=== PATIENT | male | born 1960 | race Caucasian/White ===

== ENCOUNTER 2021-04-10 05:57 | Day surgery (SDC) | payer OTHER, SELFPAY ==
--- NOTE | 2021-04-08 09:58 | EKG12_ITS ---
Test Reason : PRE OP Blood Pressure : / mmHG Vent. Rate : 057 BPM Atrial Rate : 057 BPM P-R Int : 168 ms QRS Dur : 080 ms QT Int : 400 ms P-R-T Axes : 009 000 016 degrees QTc Int : 389 ms Sinus bradycardia Otherwise normal ECG Confirmed by RIZWANA JOYNER, JOSH ([id number]), assistant production editor EUNICE GUERIN ([id number]) on 04/15/2021 12:33:18 PM Referred By: Robert Brasher Confirmed By:SOWMYA WAGONER MD
[2021-04-08 10:57] LABS: Hemoglobin A1c 6.7 % (3.8-5.6)
[2021-04-08 11:04] LABS: Anion Gap 6 (5-15); BUN 20 mg/dL (7-18); BUN/Creat Ratio 18.5 RATIO (10-20); Chloride 106 mmol/L (98-107); Creatinine, Serum 1.08 mg/dL (0.70-1.30); EST Glomerular Filtration Rate 74 mL/min (>60); Est Glom Filt Rate - Afr Amer 90 mL/min (>60); Glucose 131 mg/dL (74-106); Potassium 4.2 mmol/L (3.5-5.1); Sodium Level 138 mmol/L (136-145)
[2021-04-10 06:48] VITALS: BP 111/74; PULSE 56; RESP 16; TEMP 36.3; O2SAT 97; BMI 30.6
--- NOTE | 2021-04-10 06:52 | PCM.HP.BLA ---
History and Physical Date of Admission: 04/10/21 Intake Vital Signs 04/01/21 14:26 Height 6 ft Weight: 234 lb BMI 31.7 BP 128/76 H Blood Pressure Location Rt brachial Position Sitting Respiration 18 Pulse 78 Pulse Source Monitor Temp 97.6 F L Temp Source Temporal Pulse Oximetry (%) 97 Oxygen Delivery Method room air Intake Visit Reasons: Hernia Chief Complaint: umbilical hernia General Administrator Required: No Is patient in pain?: No Allergies gabapentin Allergy (Intermediate, Verified 04/01/21 14:28) leg swelling naproxen Allergy (Intermediate, Verified 04/01/21 14:28) headache Medications lisinopril 20 mg tablet 20 mg PO DAILY 04/01/21 [History Confirmed 04/01/21] pioglitazone 30 mg tablet 30 mg PO DAILY 04/01/21 [History Confirmed 04/01/21] rivaroxaban 20 mg tablet 20 mg PO DAILY 04/01/21 [History Confirmed 04/01/21] sildenafil 25 mg tablet 25 mg PO DAILY PRN 04/01/21 [History Confirmed 04/01/21] tamsulosin 0.4 mg capsule 0.4 mg PO DAILY 04/01/21 [History Confirmed 04/01/21] PFSH Medical History (Updated 04/01/21 @ 14:[address] Robert Brasher MD) Asthma Blood clotting disorder Diabetes Hemorrhoids History of back problems Hx of half-way use of blood thinners Hypertension Umbilical hernia Surgical History (Updated 04/01/21 @ 14:25 by Melonie Loomis) History of blepharoplasty History of carpal tunnel release History of lumbar sympathectomy History of tonsillectomy Family History (Updated 04/01/21 @ 14:25 by Melonie Loomis) Mother Diabetes Father Diabetes Heart disease Social History (Updated 04/01/21 @ 14:26 by Melonie Loomis) alcohol intake: never substance use type: does not use HPI HPI HPI: SARAH DANIEL, is a 60 M who presents to the office today for umbilical hernia. Patient reports he has been noting bulging and pain in the area. Patient does not have any nausea or vomiting. No fevers or chills. No radiation of pain. ROS General General: No weight change, appetite, fatigue, colon cancer, breast cancer or weakness HEENT HEENT: No difficulty swallowing, eye injury, eye surgery, swollen glands or hoarseness Endo Endocrine: Yes diabetes mellitus; No thyroid disease, thyroid cancer, Hair loss, heat intolerance or cold intolerance Skin Skin: No rash or changing moles Breast Breast: No left breast lump, right breast lump, nipple discharge, breast pain, abnormal mammogram, abnormal US or breast enlargement Musc Musculoskeletal: Yes back problems; No arthritis, rheumatoid arthritis, gout or joint pain Cardio Cardiovascular: Yes murmur and high blood pressure; No pacemaker, heart disease, atrial fibrillation, heart attack, heart stent, palpitations, shortness of breat with exertion or chest pain Psych Psychiatric: No depression, anxiety or hearing voices Resp Respiratory: No shortness of breath, No sleep apnea, No cough, No COPD, Yes asthma, No emphysema and No wheezing Gastro Gastrointestinal: No abdominal pain, No nausea or vomiting, No diarrhea, No constipation, No blood in stool, No acid reflux, Yes hemorrhoids, No ulcers, No gallbladder problem and No black,tarry stools Shakeel Hematologic: Yes blood thinners, Yes blood disorders, No bleeding, No anemia and Yes blood clots Neuro Neurologic: No system reviewed and no additional complaints, except as documented, No as per HPI, No abnormal gait, No abnormal hearing, No abnormal movements, No abnormal speech, No behavioral changes, No burning sensations, No confusion, No convulsions, No disequilibrium, No dizziness, No localized weakness, No frequent falls, No headache(s), No lack of coordination, No loss of vision, No memory loss, Yes numbness, No other visual disturbances, No radicular pain, No restless legs, No sensory deficit, No syncope, Yes tingling, No tremor(s), No weakness and No other Exam Const General: cooperative Orientation: alert and oriented x3 HENMT Head: normal to inspection Neck Neck: normal visual inspection and full ROM Chest Chest palpation & inspection: normal inspection of the chest Resp Effort & Inspection: normal respiratory effort Auscultation: clear to auscultation bilaterally Cardio Rate: regular rate Rhythm: regular rhythm GI Inspection: non-distended Palpation: soft, hernia umbilical and nontender Skin General: no rashes or lesions noted Neuro General: patient alert and patient oriented x3 Extrem General: full ROM Psych Appearance: grossly normal Mental Status: mental status grossly normal Assessment and Plan Assessment and Plan (1) Umbilical hernia: Status: Inactive Qualifiers: Obstruction and gangrene presence: without obstruction or gangrene Qualified Code(s): K42.9 - Umbilical hernia without obstruction or gangrene Plan - Dr. Robert Brasher MD: Patient has an umbilical hernia. I discussed umbilical hernia repair with mesh. I discussed the mesh placement as well as the recurrence rate without mesh. I discussed the risks of the procedure including not limited to bleeding, infection, injury to underlying organs. I discussed postoperative care and restrictions. All questions were answered. Patient will proceed with umbilical hernia repair with mesh. Robert Brasher MD Pager: [facility] [address] [place] [address], [address] [place] [address] Office: I have re-examined the patient. There are no clinical changes since date of exam.
[2021-04-10] MEDS: Lactated Ringers 1,000 ML 100 ML IV ×2 (06:55→08:34)
[2021-04-10] MEDS: Cefazolin 2 GM in 0.9% Normal Saline 100 ML IV (07:25)
[2021-04-10 07:30] LABS: Bedside Glucose 91 mg/dL (70-110)
[2021-04-10] MEDS: Bupivacaine Mpf 0.5% 30 ML VIAL (07:59)
--- NOTE | 2021-04-10 08:04 | PCM.OPRPT ---
Problems Associated Problem List Diagnoses (1) Umbilical hernia: Report of Operation Date of Procedure: 04/10/21 Pre-Operative Diagnosis: Umbilical hernia Post-Operative Diagnosis: Same Surgery/Procedure Performed:: Umbilical hernia repair with mesh Description of Procedure: Patient was brought back to the operating room and general anesthesia was induced. The abdomen was prepped and draped in usual sterile fashion. A curvilinear incision was marked superior to the umbilicus and injected with local anesthetic. Scalpel was used to make an incision and this was deepened to the fascia. The hernia was divided from the umbilical stalk and reduced. The fascial edges were elevated and cleared and deep to this the preperitoneal area was dissected to allow for a pocket. Next the area was irrigated and suctioned dry and a medium ventralex ST mesh was placed into the preperitoneal space. It was tacked to the fascia using 2-0 PDS sutures. This was irrigated and suctioned dry and then the fascia was closed in a transverse fashion using interrupted 2-0 PDS sutures. The subcutaneous tissue was irrigated and suctioned dry and the umbilical stalk was tacked to the fascia using a 3-0 Vicryl suture. Next the skin was reapproximated using interrupted 3-0 Vicryl sutures and a running 4 Monocryl suture. More local anesthetic was used and then glue was applied. Dressing was then applied and the patient was taken to PACU in stable condition. Grafts/Implants Used: Medium Ventralex ST mesh Admit VTE Documentation VTE Mechan Device Prophylaxis: SCD's
--- NOTE | 2021-04-10 08:06 | EX.PCM.DISCH ---
Discharge Instructions Procedure Hernia Diet Discharge Diet: Light diet - advance as tolerated Activity Discharge Activity: May Not Drive (for 2-3 days or while taking narcotic pain meds.) and May Shower (with the bandage in place 1-2 days after surgery.) Lifting Restrictions: 20 pounds for 6 weeks. Additional Activity Instructions:: Climbing stairs is fine, walking is encouraged. Sitting in bed may be uncomfortable. Sitting up using your lateral muscles (sitting up sideways) is usually more comfortable. Do not drive, work heavy equipment of sign legal documents for 24 hours. Pain medications may cause nausea, you should typically eat light foods as you take your pain medications. Pain medications may also cause constipation. If you have difficulty with this, discuss with your doctor. Dressing / Incision Call your doctor if your incision/area has: Continuous Slow Oozing, Sudden Increased Bleeding, Increased Pain/ Swelling, Increased Redness and Foul Smelling Discharge Call your doctor if you observe: Fever of 101 or Higher Suture Line Care: Avoid Pulling/Pushing and Avoid Pinching/Bending Remove Dressing in: 3 days Cleanse incision/area with: Soap & Water Follow Up Care Please Follow Up With: Robert Brasher MD When: Please call to schedule 2 week follow up appointment. [phone] Test Results: Test results from this visit will be discussed in further detail at your follow-up appointment, if applicable. Discharge Plan Admission Attending Provider: Robert Brasher Primary Care Provider: Gallito Covarrubias NP Discharge Orders/Prescriptions Prescriptions: New oxycodone-acetaminophen [Percocet] 5-325 mg tablet 1 tab PO Q4H PRN (Reason: pain) 5 Days Qty: 20 RF: 0 No Action tamsulosin 0.4 mg capsule 0.4 mg PO DAILY RF: 0 pioglitazone 30 mg tablet 30 mg PO DAILY RF: 0 lisinopril 20 mg tablet 20 mg PO DAILY RF: 0 Xarelto 20 mg tablet 20 mg PO DAILY RF: 0 sildenafil 25 mg tablet 25 mg PO DAILY PRN (Reason: Erectile Dysfunction) RF: 0 fluticasone propionate [Flonase Allergy Relief] 50 mcg/actuation [place],Suspension 1 spray INTRANASAL DAILY PRN (Reason: ALLERGIES) RF: 0 coenzyme Q10 [CoQ-10] 100 mg Capsule 100 mg PO DAILY RF: 0 Fish Oil 1,000 mg Capsule 1 cap PO DAILY RF: 0 albuterol sulfate 90 mcg/actuation Hfa Aerosol Inhaler 1 inh INHALATION Q6H PRN (Reason: SOB) RF: 0 Referrals / Follow Up: Gallito Covarrubias NP, [employer] [Primary Care Provider] - Disposition Disposition (needs filled in before D/C Order can be placed): Home, Self Care
[2021-04-10 08:08] VITALS: BP 111/74; BP 87/53; PULSE 63; RESP 12; TEMP 36.4; O2SAT 98
[2021-04-10 08:15] VITALS: BP 111/74; BP 88/49; PULSE 65; RESP 16; O2SAT 96
[2021-04-10 08:30] VITALS: BP 111/74; BP 91/55; PULSE 65; RESP 16; O2SAT 95
[2021-04-10 08:45] VITALS: BP 111/74; BP 97/61; PULSE 62; RESP 16; TEMP 36.3; O2SAT 96
[2021-04-10 08:46] LABS: Bedside Glucose 127 mg/dL (70-110)
[2021-04-10 09:52] VITALS: BP 111/74; BP 137/73; PULSE 60; RESP 16; TEMP 36.2; O2SAT 94
== END 2021-04-10 10:00 | disposition home or self-care (01) ==
LOC: SDC 05:58 → AC 05:58
PROVIDERS: Anesthesiology; PCP Nurse Practitioner Family; Referring Provider Surgery; Visit Provider Surgery
PROC: (CPT 49585; principal; 2021-04-10 07:15)
DX: K42.9 Umbilical hernia without obstruction or gangrene (principal); J45.909 Unspecified asthma, uncomplicated; E11.9 Type 2 diabetes mellitus without complications; I10 Essential (primary) hypertension; Z79.899 Other long term (current) drug therapy
CPT/HCPCS: 49585; 36415; 80048; 82962; 83036; 87426; 93005; C1781; C9803; J7120; J2405